=== PATIENT | male | born 1990 | race Hispanic/Latino ===

== ENCOUNTER 2022-04-09 15:14 | Emergency (ER) | payer SELFPAY ==
[2022-04-09 15:46] VITALS: BP 141/85; PULSE 65; RESP 16; TEMP 36.8; O2SAT 100
--- NOTE | 2022-04-09 17:52 | ED.GENADULT ---
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 Reports he noted having problems talking and closing his left eye while he was eating dinner. Before he did note some left ear pain. Also reports some taste disturbance. Denies fever, or other focal numbness or weakness. Review of Systems Review of Systems: CONSTITUTIONAL: Denies fever EYES: Denies visual changes, redness, or discharge. SKIN: Denies rash NEUROLOGIC: Reports numbness and weakness. Denies headache All systems reviewed & are unremarkable except as noted in HPI and below PMFSH Past Medical History Medical History (Updated 04/09/22 @ 18:17 by Mireya Sharp PA-C) No active medical problems Social History Social History (Updated 04/09/22 @ 18:01 by Mireya Sharp PA-C) Smoking status: Current every day smoker Alcohol intake: never Substance use: never Exam Narrative: GENERAL: Well-appearing, well-nourished, and in no acute distress. HEAD: Normocephalic, atraumatic. EYES: PERRLA and EOMI. ENT: Nares clear, no rhinorrhea or epistaxis. Mucous membranes moist. Oropharynx without tonsillar hypertrophy exudate or other lesions. Bilateral TMs pearly thomas non-bulging NECK: Supple. No adenopathy or masses. CHEST: Clear to auscultation. No respiratory distress. No wheezes rales or rhonchi HEART: Regular rate and rhythm. No murmur heard. Normal peripheral pulses. EXTREMITIES: Normal range of motion. No edema. Strength equal in bilateral upper and lower extremities (5/5) SKIN: Warm, dry, no rash. NEURO: Alert and oriented x3. With the exception of CN XII, cranial nerves II-XII are intact PSYCH: Normal mood and affect Course Vital Signs Vital signs: Vital Signs Temperature 98.2 F 04/09/22 15:46 Pulse Rate 65 04/09/22 15:46 Respiratory Rate 16 04/09/22 15:46 Blood Pressure 141/85 H 04/09/22 15:46 Pulse Oximetry 100 12/16/22 15:46 Oxygen Delivery Room Air 04/09/22 15:46 Temperature 98.2 F 04/09/22 15:46 Pulse Rate 65 04/09/22 15:46 Respiratory Rate 16 04/09/22 15:46 Blood Pressure 141/85 H 04/09/22 15:46 Pulse Oximetry 100 04/09/22 15:46 Oxygen Delivery Room Air 04/09/22 15:46 Medical Decision Making MDM Narrative Medical decision making narrative: Patient presents to the emergency department for left-sided facial paralysis noted since last night. Patient is noted to have left-sided facial paralysis involving the forehead on exam. 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 He will be started on an antiviral and steroid. Will be given follow-up with primary provider. Patient was educated and all questions answered. He was given warnings to return to the ER Vital Signs Vital Signs: Vital Signs Temperature 98.2 F 04/09/22 15:46 Pulse Rate 65 04/09/22 15:46 Respiratory Rate 16 04/09/22 15:46 Blood Pressure 141/85 H 04/09/22 15:46 Pulse Oximetry 100 04/09/22 15:46 Oxygen Delivery Room Air 04/09/22 15:46 Temperature 98.2 F 04/09/22 15:46 Pulse Rate 65 04/09/22 15:46 Respiratory Rate 16 04/09/22 15:46 Blood Pressure 141/85 H 04/09/22 15:46 Pulse Oximetry 100 04/09/22 15:46 Oxygen Delivery Room Air 04/09/22 15:46 Critical Care Time Critical Care Time Critical Care Time: No Discharge Plan Discharge Clinical Impression: Guerra's palsy Patient Disposition: Home, Self-Care Condition: Stable Instructions: Guerra Palsy (ED) Additional Instructions: Return to the ER if you experience fever, other focal numbness or weakness, or any other symptoms that are concerning to you Take antiviral (Valacyclovir) and steroid (Predni
== END 2022-04-09 19:10 | disposition home or self-care (01) ==
PROVIDERS: Emergency Provider Physician Assistant
DX: G51.0 Bell's palsy (principal); F17.210 Nicotine dependence, cigarettes, uncomplicated
CPT/HCPCS: 99283

== ENCOUNTER 2023-07-14 10:22 | Emergency (ER) | payer OTHER, SELFPAY ==
--- NOTE | ~2023-07-14 | CT_ITS ---
EXAMINATION: CT abdomen pelvis w con DATE: 07/14/2023 13:58 INDICATION: Rectal abscess concern TECHNIQUE: Computed tomography (CT) of the abdomen and pelvis was performed with 100 CC Omnipaque 350 intravenous contrast. Automated exposure control and iterative reconstruction technique were employe d. Exam dose: 688.26 mGy-cm total exam DLP. COMPARISON: None. FINDINGS: The lung bases are clear. Normal heart size. No pericardial or pleural effusion. Posterior hypoattenuating approximately 7.7 mm right hepatic lesion, likely hemangioma or cyst. The liver is ot herwise unremarkable. The gallbladder is unremarkable. No pericholecystic fluid or fat stranding. No bile duct or pancreatic duct dilatation. No pancreatic mass lesion or calcification. Normal splenic s ize. Normal morphology of the adrenal glands. No renal mass lesion or urinary tract calculus or hydroureteronephrosis. The urinary bladder is unrem arkable. Prostate calcifications. Small fat-containing inguinal hernias, left larger than right. There are small fat-containing umbilic al hernia. Normal caliber of the abdominal aorta. No intraperitoneal or retroperitoneal or pelvic mass lesion or adenopathy or ascites. Normal appendix. No bowel obstruction, bowel wall thickening, pneumatosis or intraperitoneal free air . There is an approximately 11 x 17 mm lesion along the posterolateral left rectal wall suspicious for rectal abscess. No suspicious osteolytic or osteoblastic lesions are noted. IMPRESSION: Approximately 11 x 17 mm probable left posterior lateral perirectal abscess Small fat-containing inguinal hernias, larger on the left Small fat-containing umbilical hernia Probable small hemangioma or cyst of the posterior right hepatic lobe Reviewed, dictated and finalized at [facility]. Reviewed, dictated and finalized at [facility]. IMPRESSION: Approximately 11 x 17 mm probable left posterior lateral perirecta l abscess Small fat-containing inguinal hernias, larger on the left Small fat-containing umbilical hernia Probable small hemangioma or cyst of the posterior right hepatic lobe
[2023-07-14 10:45] VITALS: BP 128/79; PULSE 78; TEMP 36.6; O2SAT 100
--- NOTE | 2023-07-14 12:31 | ED.GENADULT ---
HPI - General Adult General Chief complaint: Skin/Abscess/Foreign Body Stated complaint: ABSCESS Time Seen by Provider: 07/14/23 12:03 History of Present Illness HPI narrative: 32-year-old male presenting to the emergency department for evaluation of a suspected rectal abscess. Patient does have a prior history of rectal abscess approximately 12 years ago. Patient states her last 3 days has had increased pain at the rectum. Patient is not diabetic. Related Data Allergies Allergy/AdvReac Type Severity Reaction Status Date / Time Penicillins Allergy Unknown Verified 07/14/23 10:25 Review of Systems Review of Systems: All systems reviewed & are unremarkable except as noted in HPI and below PMFSH Past Medical History Medical History (Updated 07/14/23 @ 14:46 by Jah Rojo MD) No active medical problems Social History Social History (Updated 04/09/22 @ 18:01 by Mireya Sharp PA-C) Smoking status: Current every day smoker Alcohol intake: never Substance use: never Exam Narrative: APPEARANCE: Well appearing, no pain, no distress, well-nourished. HEAD: normocephalic, atraumatic. EYES: PERRLA/EOMI, conjunctivae clear. NOSE: Normal no drainage RESPIRATORY: Airway patent, respirations nonlabored. Clear to auscultation bilaterally, no rales, rhonchi, wheezing. CARDIOVASCULAR: Regular rate and rhythm without murmurs rubs or gallops. ABDOMINAL: Soft, nontender, nondistended, normal bowel sounds Rectal exam: No visible erythema, edema or hemorrhoids MUSCULOSKELETAL: Moves all extremities. Strength/ROM intact, No edema, No calf tenderness. NEURO: Alert. Cranial nerves II through XII intact. Grossly intact SKIN: Warm, dry. Normal Color Course Course Emergency Course: Patient was updated results of his workup, started on p.o. antibiotics and he will have follow-up with surgery as outpatient. Vital Signs Vital signs: Vital Signs Temperature 97.8 F 07/14/23 10:45 Pulse Rate 78 07/14/23 10:45 Blood Pressure 128/79 07/14/23 10:45 Pulse Oximetry 100 07/14/23 10:45 Temperature 97.8 F 07/14/23 14:10 Pulse Rate 77 07/14/23 14:10 Respiratory Rate 18 07/14/23 14:10 Blood Pressure 139/75 07/14/23 14:10 Pulse Oximetry 100 07/14/23 14:10 Medical Decision Making [facility] Narrative Medical decision making narrative: 32-year-old male presents emergency department for evaluation of a suspected rectal abscess. Patient does have a history of rectal abscess. No abscess visualized externally. CT scan did show an abscess within the rectum that was 11 x 17 mm. Case was discussed with surgery and patient was started on antibiotics and will have close follow-up with surgery. Patient family were updated on the results of the workup patient questions and concerns were addressed. Differential Diagnosis Differential Diagnosis: Perirectal abscess. Perianal abscess. Cellulitis, hemorrhoids Vital Signs Vital Signs: Vital Signs Temperature 97.8 F 07/14/23 10:45 Pulse Rate 78 07/14/23 10:45 Blood Pressure 128/79 07/14/23 10:45 Pulse Oximetry 100 07/14/23 10:45 Temperature 97.8 F 07/14/23 14:10 Pulse Rate 77 07/14/23 14:10 Respiratory Rate 18 07/14/23 14:10 Blood Pressure 139/75 07/14/23 14:10 Pulse Oximetry 100 07/14/23 14:10 Lab Data Lab results reviewed: Yes I reviewed the patient's lab results. 07/14/23 12:59 07/14/23 12:59 Labs: Lab Results 07/14/23 Range/Units 12:59 WBC 9.6 (4.5-10.0) K/mm3 RBC 4.81 (4.6-6.20) M/mm3 Hgb 15.2 (14.0-18.0) g/dL Hct 44.8 (42.0-52.0) % MCV 93.1 (80-100) fl MCH 31.6 (26-34) pg MCHC 33.9 (32-36) g/dl RDW 12.3 (11.5-14.5) % Plt Count 266 (150-375) k/mm3 MPV 10.6 H (7.4-10.4) fl Immature Gran % (Auto) 0.3 (0-0.5) % Neut % (Auto) 66.5 (45.5-73.1) % Lymph % (Auto) 24.6 (18.3-44.2) % [place] % (Auto) 6.2 (2.6-8.5) % Eos
[2023-07-14 13:12] LABS: Basophils Percent Auto 0.4 % (0.2-1.2); Eosinophils Absolute Auto 0.2 K/mm3 (0-0.3); Hematocrit 44.8 % (42.0-52.0); Hemoglobin 15.2 g/dL (14.0-18.0); Immature Granulocyte Absolute 0.03 K/mm3 (0.00-0.031); Immature Granulocyte Percent A 0.3 % (0-0.5); Lymphocytes Absolute Auto 2.36 K/mm3 (0.9-3.2); Lymphocytes Percent Auto 24.6 % (18.3-44.2); Mean Corpuscular HGB Conc 33.9 g/dl (32-36); Mean Corpuscular Hemoglobin 31.6 pg (26-34); Mean Corpuscular Volume 93.1 fl (80-100); Mean Platelet Volume 10.6 fl (7.4-10.4); Monocytes Absolute Auto 0.6 K/mm3 (0.1-0.6); Monocytes Percent Auto 6.2 % (2.6-8.5); Neutrophils Absolute Auto 6.4 K/mm3 (1.3-6.7); Neutrophils Percent Auto 66.5 % (45.5-73.1); Platelet Count Result 266 k/mm3 (150-375); Red Blood Count 4.81 M/mm3 (4.6-6.20); Red Cell Distribution Width 12.3 % (11.5-14.5); White Blood Count 9.6 K/mm3 (4.5-10.0)
[2023-07-14 13:27] LABS: Lactic Acid Reflex 1.2 mmol/L (0.7-2.0)
[2023-07-14 13:28] LABS: Alanine Aminotransferase 52 U/L (6-50); Albumin Level 4.4 g/dL (3.5-5.1); Alkaline Phosphatase 94 U/L (38-126); Anion Gap 4 mmol/L (8-16); Aspartate Amino Transferase 38 U/L (17-59); Bilirubin,Total 1.4 mg/dL (0.2-1.3); Blood Urea Nitrogen 12 mg/dL (9-20); Calcium 9.6 mg/dL (8.4-10.2); Carbon Dioxide 30 mmol/L (22-30); Chloride 105 mmol/L (98-107); Estimated CRCL calculation 144 ml/min; Estimated Glomerular Filt Rate > 60; Glucose 91 mg/dL (65-110); Sodium 139 mmol/L (137-145)
[2023-07-14 13:29] LABS: Partial Thromboplastin Time 31.6 Seconds (22.3-36.8); Prothrombin Time 13.2 Seconds (11.1-14.7)
[2023-07-14 14:10] VITALS: BP 139/75; PULSE 77; RESP 18; TEMP 36.6; O2SAT 100
[2023-07-14] MEDS: CIPROFLOXACIN 500 MG TAB PO (14:58)
[2023-07-14] MEDS: metroNIDAZOLE 500 MG TABLET PO (14:58)
[2023-07-14] MEDS: HYDROcodone/acetaminophen (*CRX) 5-325 MG TABLET 1 TAB PO (15:09)
== END 2023-07-14 15:11 | disposition home or self-care (01) ==
PROVIDERS: Emergency Provider Emergency Medicine; Referring Provider Emergency Medicine
DX: K61.1 Rectal abscess (principal); F17.200 Nicotine dependence, unspecified, uncomplicated; K40.90 Unilateral inguinal hernia, without obstruction or gangrene, not specified as recurrent; K42.9 Umbilical hernia without obstruction or gangrene; R93.2 Abnormal findings on diagnostic imaging of liver and biliary tract; R93.89 Abnormal findings on diagnostic imaging of other specified body structures
CPT/HCPCS: 36415; 74177; 80053; 83605; 85025; 85610; 85730; 87040; 87077; 87181; 99284; A9270; Q9967